=== PATIENT | male | born 2005 | race Caucasian/White ===

== ENCOUNTER 2023-08-15 14:10 | Emergency (ER) | payer BC, SELFPAY ==
[2023-08-15 14:14] VITALS: BP 137/112; PULSE 119; RESP 17; TEMP 36.3; O2SAT 99
--- NOTE | 2023-08-15 14:25 | ED.PSYCH ---
HPI - Psych General Chief Complaint: Psychiatric Symptoms Stated Complaint: malachi combs Time Seen by Provider: 08/15/23 14:25 History of Present Illness HPI Narrative: Patient is a 18-year-old male with history of schizophrenia here with worsening mental health. He states he has been compliant with his medication in recently moved to this area and does not have an established psychiatrist. He does follow the primary care doctor who plans to refer him to a psychiatrist tomorrow. He states over the last 3 weeks he has had worsening symptoms similar to his schizophrenia when he is not on medications which include racing thoughts, difficulty sleeping and auditory hallucinations. He notes no recent changes in his medications. He has been able to continue going to work. He denies any thoughts of self-harm. No homicidal ideation. He notes 2 prior psychiatric hospitalizations in the past, 1st episode was due to suicidal thoughts, 2nd 1 was due to decompensated schizophrenia along with drug use. 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 He denies any cough, congestion, fever, chills. Related Data Home Medications Medication Instructions Recorded Confirmed duloxetine 20 mg capsule,delayed 20 mg PO BID 08/15/23 08/15/23 release (Cymbalta) risperidone 0.5 mg tablet mg 08/15/23 08/15/23 Allergies Allergy/AdvReac Type Severity Reaction Status Date / Time No Known Allergies Allergy Verified 08/15/23 14:25 Review of Systems Review of Systems: All systems reviewed & are unremarkable except as noted in HPI and below PMFSH Social History Social History Substance use type: does not use Exam Narrative: GENERAL: Well-appearing, well-nourished, and in no acute distress. HEAD: Normocephalic, atraumatic. EYES: PERRLA and EOMI. ENT: Nares clear. Mucous membranes moist. NECK: Supple. CHEST: Clear to auscultation. No respiratory distress. HEART: Regular rate and rhythm. Normal peripheral pulses. ABDOMEN: Soft, nontender, nondistended. EXTREMITIES: Normal range of motion. No edema. SKIN: Warm, dry, no rash. NEURO: No focal deficits. Alert and oriented x3. PSYCH: Normal mood and affect. No SI/HI, auditory hallucinations Course Course Emergency Course: Chart review performed. Patient here with schizophrenic episode per nursing note. Triage vitals show tachycardia, otherwise within normal limits. No prior visits in our system. Patient seen evaluated, nontoxic appearing. No HI or SI. He does have some worsening mental health with history of schizophrenia. Will do medical screening evaluation and have patient see crisis services. Lab work reviewed. CBC unremarkable. CMP normal. UA negative. UDS positive for cannabinoids. COVID/FLU/RSV negative. Patient medically cleared, pending evaluation by crisis services. Safety plan has been performed with crisis services. Patient has a scheduled follow-up appointment on 08/23 with a psychiatrist. He is advised to return should any of his symptoms worsen or if he develops any suicidal or homicidal ideation. The results of pertinent diagnostic studies and exam findings were discussed. The patient?s provisional diagnosis and plan of care were discussed with the patient and present family. The patient and/or present family expressed understanding of the diagnosis and plan. The nurse was instructed to provide written instructions and appropriate follow-up information. The patient understands their need and responsibility to obtain additional follow-up as instructed. The risks of medications administered and prescribed were discussed with the patient and family present. Vital Signs Vital signs: Vital Signs Temperature 97.3 F L 08/15/23 14:14 Pulse Rate 119 H 08/15/23 14:14 Respiratory Rate 17 08/15/23 14:14 Blood Pressure 137/112 H 08/15/23 14:14 Pulse Oximetry 99 08/15/23 14:14 Oxygen Delivery Room Air 08/15/23 14:1
[2023-08-15 14:41] LABS: Basophils Percent Auto 0.1 % (0.2-1.2); Eosinophils Absolute Auto 0.4 K/mm3 (0-0.3); Eosinophils Percent Auto 5.2 % (0-4.4); Hematocrit 48.8 % (42.0-52.0); Hemoglobin 16.4 g/dL (14.0-18.0); Immature Granulocyte Absolute 0.03 K/mm3 (0.00-0.031); Immature Granulocyte Percent A 0.4 % (0-0.5); Lymphocytes Absolute Auto 1.72 K/mm3 (0.9-3.2); Lymphocytes Percent Auto 24.2 % (18.3-44.2); Mean Corpuscular HGB Conc 33.6 g/dl (32-36); Mean Corpuscular Hemoglobin 29.1 pg (26-34); Mean Corpuscular Volume 86.5 fl (80-100); Mean Platelet Volume 8.7 fl (7.4-10.4); Monocytes Absolute Auto 0.5 K/mm3 (0.1-0.6); Monocytes Percent Auto 6.5 % (2.6-8.5); Neutrophils Absolute Auto 4.5 K/mm3 (1.3-6.7); Neutrophils Percent Auto 63.6 % (45.5-73.1); Platelet Count Result 261 k/mm3 (150-375); Red Blood Count 5.64 M/mm3 (4.6-6.20); Red Cell Distribution Width 12.4 % (11.5-14.5); White Blood Count 7.1 K/mm3 (4.5-10.0)
[2023-08-15 14:51] LABS: Alanine Aminotransferase 38 U/L (6-50); Alkaline Phosphatase 100 U/L (38-126); Anion Gap 12 mmol/L (8-16); Aspartate Amino Transferase 37 U/L (17-59); Bilirubin,Total 0.9 mg/dL (0.2-1.3); Blood Urea Nitrogen 12 mg/dL (9-20); Carbon Dioxide 27 mmol/L (22-30); Chloride 101 mmol/L (98-107); Estimated CRCL calculation 111 ml/min; Estimated Glomerular Filt Rate > 60; Glucose 97 mg/dL (65-110); Sodium 140 mmol/L (137-145)
[2023-08-15] MEDS: LORazepam (*CRX) 1 MG TABLET PO (15:10)
[2023-08-15 15:11] LABS: Appearance Urine Clear (Clear); Bilirubin Urine Negative (Negative); Blood Urine Negative (Negative); Color Urine Yellow (Yellow); Glucose Urine UA Negative (Negative); Ketones Urine Negative (Negative); Leukocyte Esterase Ur Negative LEU/UL (Negative); Nitrate Urine Negative (Negative); Protein Urine Negative (Negative); Urobilinogen Urine 0.2 mg/dL (<2.0); pH Urine 8.5 (5.0-9.0)
[2023-08-15 15:12] LABS: Add Urine Microscopic? NO
[2023-08-15 15:17] LABS: Influenza A QL RT-PCR Negative (Negative); Influenza B QL RT-PCR Negative (Negative); SARS-CoV-2 RNA PCR Negative (Negative)
[2023-08-15 15:25] LABS: Barbiturate Screen Urine Negative (Negative); Benzodiazepines Screen Urine Negative (Negative)
[2023-08-15 16:02] LABS: Amphetamine Screen Urine Negative (Negative); Cannabinoid Screen Urine Positive (Negative)
[2023-08-15] MEDS: ONDANSETRON HCL ODT 4 MG TABLET PO (16:06)
[2023-08-15 16:17] LABS: Cocaine Screen Urine Negative (Negative); Methadone Screen Urine Negative (Negative); Opiate Screen Urine Negative (Negative)
[2023-08-15 16:35] LABS: Phencyclidine Screen Urine Negative (Negative)
[2023-08-15 16:41] LABS: Ethanol < 10 mg/dL (<10)
[2023-08-15 17:27] VITALS: BP 135/82; PULSE 111; RESP 18; TEMP 36.8; O2SAT 100
== END 2023-08-15 18:34 | disposition home or self-care (01) ==
PROVIDERS: Physician Assistant; Emergency Provider Student in an Organized Health Care Education/Training Program; PCP Family Medicine
DX: F20.9 Schizophrenia, unspecified (principal)
CPT/HCPCS: 36415; 80053; 80307; 81003; 84443; 85025; 87636; 99284; A9270

== ENCOUNTER 2023-08-17 15:22 | Emergency (ER) | payer BC, SELFPAY ==
--- NOTE | ~2023-08-17 | XR_ITS ---
EXAMINATION: XR chest 2V 08/17/2023 16:28 INDICATION: Weakness. PROCEDURE: 2 view chest COMPARISON: No prior studies for comparison. FINDINGS: The lungs are clear. The cardiomediastinal silhouette is within normal limits. There are no pleural effusions. There is no pneumothorax suspected. IMPRESSION: 1: NO ACUTE CARDIOPULMONARY DISEASE. Reviewed, dictated and finalized at location B.
[2023-08-17 15:24] VITALS: BP 130/77; PULSE 135; RESP 18; TEMP 36.6; O2SAT 98
--- NOTE | 2023-08-17 15:58 | ECG_ITS ---
Measurements Intervals [place] Rate: 97 P: 39 MS: 165 QRS: 78 QRSD: 100 T: 20 QT: 340 QTc: 432 Interpretive Statements SINUS RHYTHM NORMAL ECG NO PREVIOUS ECG AVAILABLE FOR COMPARISON Electronically Signed On 08-18-2023 8:57:38 CDT by Dustin Olsen M.D.
[2023-08-17 16:02] VITALS: PULSE 112; RESP 26; O2SAT 97
[2023-08-17 16:08] VITALS: BP 127/74; PULSE 93
[2023-08-17 16:09] VITALS: BP 118/76; BP 166/76; PULSE 119; PULSE 70
--- NOTE | 2023-08-17 16:11 | ED.GENADULT ---
HPI - General Adult General Chief complaint: Weakness Stated complaint: heaviness/weak Time Seen by Provider: 08/17/23 15:33 Source: patient and RN notes reviewed Mode of arrival: ambulatory Limitations: no limitations History of Present Illness HPI narrative: This is a 18 year old male with history of schizophrenia who presents for evaluation of multiple complaints. He states he has been having intermittent episodes of feeling heaviness all over his body. He states he feels like he can not move. He also reports shortness of breath and seeing spots. He also reports having spinning sensation. He denies headache. He reports having nausea and vomiting this morning. His girlfriend is present with patient. He was evaluated in ER 2 days ago for these symptoms and he had unremarkable evaluation. He was also evaluated by PCP yesterday and he was referred to a psychiatrist. His appointment is next week. He denies any medication changes in 2 months. Related Data Home Medications Medication Instructions Recorded Confirmed duloxetine 20 mg capsule,delayed 20 mg PO BID 08/15/23 08/15/23 release (Cymbalta) risperidone 0.5 mg tablet mg 08/15/23 08/15/23 Allergies Allergy/AdvReac Type Severity Reaction Status Date / Time No Known Allergies Allergy Verified 08/17/23 16:20 Review of Systems Constitutional: Constitutional: Reports weakness Cardiovascular: Cardiovascular: Denies syncope, Denies rapid heart rate, Denies irregular heart rhythm, Denies leg edema and Denies dyspnea Respiratory: Respiratory: Denies chest congestion, Denies hemoptysis, Denies excessive phlegm production and Reports dyspnea Gastrointestinal: Gastrointestinal: Denies abdominal pain, Denies hematochezia, Denies diarrhea, Reports nausea and Reports vomiting Genitourinary: Genitourinary: Denies hematuria, Denies dysuria, Denies penile discharge and Denies testicular pain Musculoskeletal: Musculoskeletal: Denies joint swelling, Denies loss of height and Denies muscle weakness Neurologic: Denies syncope, Denies focal weakness and Denies weakness PMFSH Past Medical History Medical History Anxiety Social History Social History Substance use type: does not use Exam Const: General: no acute distress and alert Nutritional Appearance: well nourished Orientation/consciousness: patient oriented x3 HENMT: Head: normal to inspection Eyes: Pupils: Equal, round and reactive pupils present EOM: EOMs intact bilaterally Chest: Chest palpation & inspection: normal inspection of the chest Resp: Effort & Inspection: normal respiratory effort Auscultation: clear to auscultation bilaterally Cardio: Rate: regular rate Rhythm: regular rhythm Heart sounds: no murmurs GI: GI Palp: Yes Soft to palpation, No Tenderness to palpation present (GI), No Guarding due to palpation present (GI) and No Rigid due to palpation Auscultation: normal bowel sounds Skin: General skin exam: normal color Rashes: no rashes Wounds: no wounds Neuro: General: patient oriented x3, moves all extremities and CN's II-XI intact bilaterally Cranial nerves: Yes Nystagmus not present Speech: normal speech Gait exam (Neuro): Normal gait present Extrem: General: normal to inspection Psych: Affect: Anxious affect present Attitude: cooperative Course Reevaluation(s) Reevaluation #1: PAtient state she feels better. He still has some nausea. He was given 2 liters IV fluids for hydration. I discussed to increase his hydration. Date: 08/17/23 Time: 18:10 Vital Signs Vital signs: Vital Signs Temperature 98 F 08/17/23 15:24 Pulse Rate 135 H 08/17/23 15:24 Respiratory Rate 18 08/17/23 15:24 Blood Pressure 130/77 08/17/23 15:24 Pulse Oximetry 98 08/17/23 15:24 Oxygen Delivery Room Air 08/17/23 15:24 Temperature 98 F 08/17/23 15:24 Pulse Rate 119
[2023-08-17 16:20] LABS: Basophils Percent Auto 0.2 % (0.2-1.2); Eosinophils Absolute Auto 0.1 K/mm3 (0-0.3); Eosinophils Percent Auto 0.5 % (0-4.4); Hematocrit 48.3 % (42.0-52.0); Hemoglobin 16.4 g/dL (14.0-18.0); Immature Granulocyte Absolute 0.05 K/mm3 (0.00-0.031); Immature Granulocyte Percent A 0.5 % (0-0.5); Lymphocytes Absolute Auto 1.06 K/mm3 (0.9-3.2); Lymphocytes Percent Auto 10.5 % (18.3-44.2); Mean Corpuscular Hemoglobin 29.3 pg (26-34); Mean Corpuscular Volume 86.3 fl (80-100); Mean Platelet Volume 8.5 fl (7.4-10.4); Monocytes Absolute Auto 0.6 K/mm3 (0.1-0.6); Monocytes Percent Auto 5.9 % (2.6-8.5); Neutrophils Absolute Auto 8.3 K/mm3 (1.3-6.7); Neutrophils Percent Auto 82.4 % (45.5-73.1); Platelet Count Result 249 k/mm3 (150-375); Red Cell Distribution Width 12.2 % (11.5-14.5); White Blood Count 10.1 K/mm3 (4.5-10.0)
[2023-08-17] MEDS: LACTATED RINGERS 1,000 ML 999 ML IV CONT ×2 (16:22→16:53)
[2023-08-17 16:31] LABS: Lactic Acid Reflex 1.4 mmol/L (0.7-2.0)
[2023-08-17 16:32] LABS: Appearance Urine Clear (Clear); Bilirubin Urine Negative (Negative); Blood Urine Negative (Negative); Color Urine Yellow (Yellow); Glucose Urine UA Negative (Negative); Ketones Urine Negative (Negative); Leukocyte Esterase Ur Negative LEU/UL (Negative); Nitrate Urine Negative (Negative); Protein Urine Negative (Negative); Urobilinogen Urine 0.2 mg/dL (<2.0)
[2023-08-17 16:32] LABS: Partial Thromboplastin Time 27.2 SECONDS (22.3-36.8)
[2023-08-17 16:33] LABS: Alanine Aminotransferase 40 U/L (6-50); Alkaline Phosphatase 107 U/L (38-126); Anion Gap 11 mmol/L (8-16); Aspartate Amino Transferase 37 U/L (17-59); Bilirubin,Total 0.7 mg/dL (0.2-1.3); Blood Urea Nitrogen 12 mg/dL (9-20); Calcium 10.3 mg/dL (8.4-10.2); Carbon Dioxide 26 mmol/L (22-30); Chloride 102 mmol/L (98-107); Estimated CRCL calculation 93 ml/min; Estimated Glomerular Filt Rate > 60; Glucose 95 mg/dL (65-110); Magnesium 2.1 mg/dL (1.6-2.3); Potassium 4.2 mmol/L (3.4-5.0); Sodium 139 mmol/L (137-145)
[2023-08-17 16:38] LABS: D Dimer < 0.27 ug/mL (<0.48)
[2023-08-17 16:41] LABS: Add Urine Microscopic? NO
[2023-08-17 16:42] LABS: Troponin I < 0.012 ng/mL (0.000-0.034)
[2023-08-17] MEDS: MECLIZINE HCL 25 MG TABLET PO (16:54)
[2023-08-17 17:07] LABS: Creatine Kinase 103 U/L (55-170)
[2023-08-17] MEDS: ONDANSETRON INJ 4 MG/2 ML VIAL IV PUSH (18:20)
[2023-08-17 18:26] VITALS: BP 131/72; PULSE 91; RESP 22; O2SAT 95
== END 2023-08-17 18:31 | disposition home or self-care (01) ==
PROVIDERS: Emergency Provider General Practice; PCP Family Medicine
DX: E86.0 Dehydration (principal); F41.9 Anxiety disorder, unspecified; F20.9 Schizophrenia, unspecified
CPT/HCPCS: 36415; 71046; 80053; 81003; 82550; 83605; 83735; 84484; 85025; 85380; 85610; 85730; 93005; 96361; 96374; 99284; A9270; J2405; J7120